=== PATIENT | female | born 1950 | race Caucasian/White ===

== ENCOUNTER 2021-04-08 11:08 | Outpatient (CLI) | payer MEDICARE ==
[~2021-04-08 11:08] MED LIST: LIDOCAINE 1%, 10ML ONE
== END 2021-04-08 23:59 | disposition home or self-care (01) ==
LOC: RAD 11:08
PROVIDERS: ATTEND Internal Medicine
DX: R18.8 Other ascites (principal); C50.812 Malignant neoplasm of overlapping sites of left female breast
CPT/HCPCS: 49083